=== PATIENT | male | born 1980 | race Caucasian/White ===

== ENCOUNTER 2016-08-21 09:04 | Emergency (ER) | payer MEDICARE, MEDICAID ==
[~2016-08-21] VITALS: Ht 165.1 cm; Wt 90.7 kg
[2016-08-21 09:30] VITALS: BP 117/86
== END 2016-08-21 10:05 | disposition home or self-care (01) ==
LOC: ER 09:07
DX: L73.9 Follicular disorder, unspecified (principal); F79 Unspecified intellectual disabilities